=== PATIENT | female | born 1985 | race Caucasian/White ===

== ENCOUNTER 2019-03-25 13:48 | Outpatient (RCR) | payer MEDICARE, OTHER | END 2019-03-27 | LOC: PT 13:48 | PROVIDERS: ATTEND Psychiatry & Neurology Neurology | DX: R42 Dizziness and giddiness (principal) | CPT/HCPCS: 97139 ==

== ENCOUNTER → 2020-11-24 | Outpatient (RCR) | payer MEDICARE, OTHER | LOC: PT 11-18 07:44 | PROVIDERS: ATTEND Physical Medicine & Rehabilitation Brain Injury Medicine | DX: M62.838 Other muscle spasm (principal); M21.371 Foot drop, right foot; R26.89 Other abnormalities of gait and mobility; I69.353 Hemiplegia and hemiparesis following cerebral infarction affecting right non-dominant side ==

== ENCOUNTER 2020-12-24 08:00 | Outpatient (RCR) | payer MEDICARE, OTHER | END 2020-12-25 | LOC: PT 08:00 | PROVIDERS: ATTEND Physical Medicine & Rehabilitation Brain Injury Medicine | DX: G80.1 Spastic diplegic cerebral palsy (principal); M62.838 Other muscle spasm; M21.371 Foot drop, right foot; R26.89 Other abnormalities of gait and mobility; I69.953 Hemiplegia and hemiparesis following unspecified cerebrovascular disease affecting right non-dominant side | CPT/HCPCS: 97139 ==